=== PATIENT | female | born 1950 | race American Indian/Alaskan Native ===

== ENCOUNTER 2020-02-23 17:16 | Emergency (ER) | payer SELFPAY ==
[~2020-02-23] VITALS: Ht 167.6 cm; Wt 90.0 kg
--- NOTE | 2020-02-23 17:21 | NUR ---
PT TO CT WITH PERLITA HOLLAND , WITH MONITOR. VIA [employer]
[2020-02-23] MEDS ORDERED: iohexol 350MG/ML 100ml bottle IV ONE (17:28)
[2020-02-23 17:36] LABS: BASOPHILS % (AUTO) 0.3 % (0-1); EOSINOPHILS % (AUTO) 0 % (0-6); HEMATOCRIT 27.8 % (35.0-45.0); HEMOGLOBIN 8.9 g/dl (12.0-16.0); LYMPHOCYTES # (AUTO) 1.1 X10'3 (1.1-4.8); LYMPHOCYTES % (AUTO) 11.2 % (21-51); MEAN CORPUSCULAR HEMOGLOBIN 23.9 PG (27.0-31.0); MEAN CORPUSCULAR HGB CONC 32.1 g/dL (33.0-36.5); MEAN CORPUSCULAR VOLUME 74.7 FL (78-98); MEAN PLATELET VOLUME 9.8 FL (7.4-10.4); MONOCYTES # (AUTO) 0.4 X10'3 (0-0.9); MONOCYTES % (AUTO) 4.3 % (2-12); NEUTROPHILS # (AUTO) 8.7 X10'3 (1.8-7.7); NEUTROPHILS % (AUTO) 84.2 % (42-75); PLATELET COUNT 219 X10'3 (140-440); RED BLOOD COUNT 3.72 X10'6 (4.20-5.60); RED CELL DISTRIBUTION WIDTH 18.4 % (11.5-14.5); WHITE BLOOD COUNT 10.3 X10'3 (4.5-11.0)
--- NOTE | 2020-02-23 17:40 | NUR ---
PT BACK FROM CT, STROKE BRAYDEN BERGERON AT BEDSIDE
--- NOTE | 2020-02-23 17:43 | NUR ---
TELENE[facility]O SENT [address]
[2020-02-23 17:50] LABS: ALANINE AMINOTRANSFERASE 26 U/L (12-78); ALBUMIN 3.2 G/DL (3.4-5.0); ALBUMIN/GLOBULIN RATIO 0.9 (1.1-1.5); ALKALINE PHOSPHATASE 95 IU/L (46-116); ANION GAP 11 (8-16); ASPARTATE AMINO TRANSFERASE 19 U/L (10-37); BILIRUBIN,TOTAL 0.1 MG/DL (0.1-1.0); BLOOD UREA NITROGEN 11 MG/DL (7-18); BUN/CREATININE RATIO 13.6 (6.6-38.0); CALCIUM 7.5 MG/DL (8.5-10.1); CHLORIDE 103 MMOL/L (99-107); CREATININE 0.81 MG/DL (0.40-0.90); GLUCOSE 138 MG/DL (70-104); POTASSIUM 4.4 MMOL/L (3.5-5.1); SODIUM 137 MMOL/L (135-145); TOTAL CARBON DIOXIDE 23.4 MMOL/L (24-32); TOTAL PROTEIN 6.8 G/DL (6.4-8.2); eGFR 70 ML/MIN
[2020-02-23 17:53] LABS: ETHANOL < 0.010 GM/DL (0.0-0.010); TROPONIN I < 0.04 NG/ML (0.0-0.05)
--- NOTE | 2020-02-23 17:59 | NUR ---
MOLINA LARKIN CONSULT IN PROCESS
[2020-02-23] MEDS ORDERED: ondansetron/PF 4mg/2ml inj IV ONE (18:05)
--- NOTE | 2020-02-23 18:09 | NUR ---
Pt reports taking 2 gummie marijuanna pills.
[2020-02-23 18:21] LABS: ABG BASE EXCESS -4.1 mmol/L (-2.0-2.0); ABG HCO3 21.1 mmol/L (22.0-26.0); ABG OXYGEN SATURATION 92.1 % (94-97); ABG PCO2 (T) 39.1 mmHg (32.0-45.0); ABG PO2 (T) 76.2 mmHg (75.0-100.0); ALLEN'S TEST POSITIVE; FCOHb 1.1 % (0.0-3.9); FMetHb 0.2 % (0.0-1.5); FO2Hb 90.9 % (94-97); TOTAL HEMOGLOBIN 9.1 G/dl (12.0-16.0)
[2020-02-23 18:25] LABS: CLARITY,URINE CLEAR (Clear); COLOR,URINE YELLOW (Yellow); GLUCOSE, URINE 500 mg/dl (Neg); KETONES,URINE NEGATIVE (Neg); LEUKOCYTE ESTERASE ,URINE NEGATIVE (Neg); NITRITES, URINE NEGATIVE (Neg); OCCULT BLOOD,URINE NEGATIVE (Neg); PROTEIN,URINE NEGATIVE (Neg); UROBILINOGEN,URINE 0.2 E.U/dL (0.2-1.0)
[2020-02-23 18:28] LABS: UA COLLECTION TYPE STRAIGHT CATH
[2020-02-23 18:39] LABS: URINE AMPHETAMINE SCREEN NEGATIVE (Neg); URINE BARBITUATE SCREEN NEGATIVE (Neg); URINE BENZODIAZEPINES SCREEN NEGATIVE (Neg); URINE CANNABINOID SCREEN POSITIVE (Neg); URINE COCAINE SCREEN NEGATIVE (Neg); URINE METHADONE SCREEN NEGATIVE (Neg); URINE OPIATE SCREEN NEGATIVE (Neg); URINE PHENCYCLIDINE SCREEN NEGATIVE (Neg)
[2020-02-23 19:48] LABS: PARTIAL THROMBOPLASTIN TIME 23 SECONDS (22-32)
[2020-02-23 20:21] VITALS: BP 124/66
== END 2020-02-23 20:24 | disposition home or self-care (01) ==
LOC: ER 17:16
DX: F12.929 Cannabis use, unspecified with intoxication, unspecified (principal); R41.82 Altered mental status, unspecified; R53.1 Weakness
CPT/HCPCS: 36415; 36600; 70450; 70496; 70498; 71045; 80053; 80305; 80320; 81003; 82140; 82803; 84484; 85018; 85025; 85610; 85730; 86885; 86900; 86901; 93005; 96374; 99285; J2405; Q9967